=== PATIENT | female | born 1980 | race Caucasian/White ===

== ENCOUNTER 2021-01-18 06:40 | Inpatient (IN) | payer OTHER ==
[2021-01-18 07:32] VITALS: BMI 27.1
[2021-01-18] MEDS ORDERED: OXYTOCIN 20 UNITS in 0.9% NS 40 UNIT/2,000 ML INFUS.BAG IV ONE (08:02)
[2021-01-18] MEDS ORDERED: morphine SULFATE (PF) 1 MG/2 ML SYRINGE ONE (08:05)
[2021-01-18] MEDS ORDERED: ONDANSETRON 4 MG/2 ML VIAL ONE (08:05)
[2021-01-18] MEDS ORDERED: ceFAZolin SODIUM 1 GM VIAL ONE ×2 (08:05→17:50)
[2021-01-18] MEDS ORDERED: PHENYLEPHRINE HCL 10 MG/1 ML SINGLE DOSE VIAL ONE (08:05)
[2021-01-18] MEDS ORDERED: DEXAMETHASONE SOD PHOSPHATE 4 MG/1 ML VIAL ONE (08:05)
[2021-01-18] MEDS ORDERED: METHYLERGONOVINE MALEATE 0.2 MG/1 ML AMP IM PRN (08:12)
[2021-01-18] MEDS ORDERED: ELECTROLYTE-148 SOLN 1,000 ML IV SCH (08:15)
[2021-01-18] MEDS ORDERED: CITRIC ACID/SODIUM CITRATE 30 ML UNIT-DOSE CUP PO ONE (08:18)
[2021-01-18 08:58] LABS: INR 0.94 (0.83-1.09)
[2021-01-18 09:01] LABS: ACTIVATED PTT 27.8 SECONDS (25.2-36.5)
[2021-01-18] MEDS ORDERED: OXYTOCIN 10 UNIT/ML 10ML MDV ONE (09:07)
[2021-01-18 09:14] LABS: CALCIUM 8.6 mg/dL (8.5-10.1)
[2021-01-18 09:15] LABS: ALBUMIN 2.4 g/dl (3.4-5.0); BLOOD UREA NITROGEN 11.9 mg/dL (7-18)
[2021-01-18 09:18] LABS: CREATININE 0.6 mg/dL (0.55-1.3)
[2021-01-18 09:20] LABS: BILIRUBIN,TOTAL 0.3 mg/dL (0.2-1); TOT PROT 5.9 g/dl (6.4-8.2)
[2021-01-18] MEDS ORDERED: KETOROLAC TROMETHAMINE 30 MG/1 ML VIAL ONE (09:32)
[2021-01-18 09:43] LABS: CORD BASE EXCESS -3.5 mmol/L (0-2); CORD HCO3 21.5 mmHg (20-29); CORD pH 7.36 (7.14-7.44)
[2021-01-18 09:46] LABS: CORD HCO3 24.8 mmHg (20-29); CORD PCO2 53.7 mmHg (30-78); CORD pH 7.283 (7.14-7.44)
[2021-01-18] MEDS ORDERED: CEFAZOLIN 1 GM in DEXTROSE 5%-WATER - 50 ML IVPB SCH (10:00)
[2021-01-18] MEDS ORDERED: ACETAMINOPHEN 1000 MG/100 ML VIAL IVPB PRN (10:16)
[2021-01-18] MEDS ORDERED: OXYTOCIN 20 UNITS in 0.9% NS 20 UNIT/1,000 ML INFUS.BAG IV SCH (11:45)
[2021-01-18] MEDS: ONDANSETRON 4 MG/2 ML VIAL IVPUSH PRN ×2 (12:04→18:41)
[2021-01-18] MEDS: ENOXAPARIN NA (PORCINE) 40 MG/0.4 ML DISP.SYRIN SQ SCH (12:32)
[2021-01-18] MEDS ORDERED: DEXTROSE 5%-WATER - 50 ML IVPB ONE (17:50)
[2021-01-18] MEDS: CEFAZOLIN 1 GM in DEXTROSE 5%-WATER - 50 ML IVPB SCH (17:54)
[2021-01-19] MEDS ORDERED: ceFAZolin SODIUM 1 GM VIAL ONE ×2 (01:44→09:21)
[2021-01-19] MEDS ORDERED: DEXTROSE 5%-WATER - 50 ML IVPB ONE ×2 (01:44→09:21)
[2021-01-19] MEDS: CEFAZOLIN 1 GM in DEXTROSE 5%-WATER - 50 ML IVPB SCH ×2 (01:49→09:22)
[2021-01-19 07:39] LABS: BASO % 0.3 % (0-2.0); EOS % 0.6 % (0-4.5); HEMATOCRIT 29.9 % (32.4-45.2); LYMPH % 12.4 % (8-40); MCH 30.6 pg (25.7-33.7); MCHC 33.3 g/dl (32.0-36.0); MEAN CELL VOLUME 91.9 fl (80-96); MEAN PLT VOLUME 8.6 fl (7.5-11.1); MONO % 7.9 % (3.8-10.2); NEUT % 78.8 % (42.8-82.8); PLATELET COUNT 207 10^3/uL (134-434); RBC 3.26 M/mm3 (3.60-5.2); RDW 13.1 % (11.6-15.6); WHITE BLOOD COUNT 11.4 K/mm3 (4.0-10.0)
[2021-01-19] MEDS ORDERED: BISACODYL 10 MG SUPP.RECT RC PRN (08:12)
[2021-01-19] MEDS: ENOXAPARIN NA (PORCINE) 40 MG/0.4 ML DISP.SYRIN SQ SCH (09:20)
[2021-01-19] MEDS: IBUPROFEN 600 MG TABLET (FP) PO PRN ×2 (14:45→19:40)
[2021-01-19] MEDS: SIMETHICONE 80 MG TAB.CHEW (FP) PO PRN (19:41)
[2021-01-20] MEDS: IBUPROFEN 600 MG TABLET (FP) PO PRN ×2 (06:30→16:13)
[2021-01-20] MEDS: SIMETHICONE 80 MG TAB.CHEW (FP) PO PRN (06:30)
[2021-01-20] MEDS: ENOXAPARIN NA (PORCINE) 40 MG/0.4 ML DISP.SYRIN SQ SCH (09:49)
[2021-01-20 10:44] VITALS: BP 107/70; PULSE 72; TEMP 98.3
== END 2021-01-20 19:00 | disposition home or self-care (01) | DRG 540 ==
LOC: JLDR 06:40 → J3W 11:49
PROVIDERS: ADMIT Obstetrics & Gynecology; ATTEND Obstetrics & Gynecology
PROC: 10D00Z1 Extraction of Products of Conception, Low, Open Approach (ICD-10-PCS; principal; 2021-01-18)
DX: O34.219 Maternal care for unspecified type scar from previous cesarean delivery (principal); Z3A.39 39 weeks gestation of pregnancy; Z37.0 Single live birth
CPT/HCPCS: 36415; 36600; 80053; 82803; 85025; 85610; 85730; 88307-TC